=== PATIENT | female | born 1985 | race Caucasian/White ===

== ENCOUNTER 2020-05-13 07:37 | Outpatient (RCR) | payer BC, SELFPAY ==
[2020-03-04 09:43] LABS: Basophils Percent Auto 0.2 % (0.2-1.2); Eosinophils Absolute Auto 0.1 K/mm3 (0-0.3); Eosinophils Percent Auto 1.7 % (0-4.4); Hematocrit 41.1 % (37.0-47.0); Hemoglobin 14.3 g/dL (12.0-15.0); Immature Granulocyte Absolute 0.01 K/mm3 (0.00-0.031); Immature Granulocyte Percent A 0.2 % (0-0.5); Lymphocytes Absolute Auto 1.52 K/mm3 (0.9-3.2); Mean Corpuscular HGB Conc 34.8 g/dl (32-36); Mean Corpuscular Hemoglobin 32.7 pg (26-34); Mean Corpuscular Volume 94.1 fl (80-100); Mean Platelet Volume 9.4 fl (7.4-10.4); Monocytes Absolute Auto 0.6 K/mm3 (0.1-0.6); Neutrophils Absolute Auto 2.4 K/mm3 (1.3-6.7); Neutrophils Percent Auto 51.9 % (45.5-73.1); Platelet Count Result 229 k/mm3 (150-375); Red Blood Count 4.37 M/mm3 (4.2-5.4); Red Cell Distribution Width 11.4 % (11.5-14.5); White Blood Count 4.6 K/mm3 (4.5-10.0)
[2020-03-04 09:57] LABS: Alanine Aminotransferase 22 U/L (4-35); Albumin Level 4.6 g/dL (3.5-5.1); Alkaline Phosphatase 48 U/L (38-126); Aspartate Amino Transferase 32 U/L (14-36); Blood Urea Nitrogen 14 mg/dL (7-17); Calcium 9.6 mg/dL (8.4-10.2); Carbon Dioxide 28 mmol/L (22-30); Chloride 104 mmol/L (98-107); Cholesterol 179 mg/dL (0-200); Estimated Glomerular Filt Rate > 60; Glucose 83 mg/dL (65-105); HDL Direct 48 mg/dL; Potassium 4.2 mmol/L (3.4-5.0); Sodium 138 mmol/L (137-145); Triglycerides 85 mg/dL (<150)
[2020-03-04 10:07] LABS: LDL Cholesterol Direct 102 mg/dL
[2020-04-08 08:08] LABS: Alanine Aminotransferase 37 U/L (4-35); Albumin Level 4.5 g/dL (3.5-5.1); Alkaline Phosphatase 46 U/L (38-126); Aspartate Amino Transferase 39 U/L (14-36); Bilirubin,Total 0.9 mg/dL (0.2-1.3); Blood Urea Nitrogen 11 mg/dL (7-17); Calcium 9.3 mg/dL (8.4-10.2); Carbon Dioxide 27 mmol/L (22-30); Chloride 106 mmol/L (98-107); Cholesterol 161 mg/dL (0-200); Estimated Glomerular Filt Rate > 60; Glucose 92 mg/dL (65-105); HDL Direct 41 mg/dL; Potassium 4.4 mmol/L (3.4-5.0); Sodium 138 mmol/L (137-145); Triglycerides 104 mg/dL (<150)
[2020-04-08 08:18] LABS: LDL Cholesterol Direct 96 mg/dL
[2020-04-08 08:41] LABS: Basophils Percent Auto 0.4 % (0.2-1.2); Eosinophils Absolute Auto 0.1 K/mm3 (0-0.3); Eosinophils Percent Auto 1.9 % (0-4.4); Hematocrit 39.3 % (37.0-47.0); Hemoglobin 13.6 g/dL (12.0-15.0); Immature Granulocyte Absolute 0.02 K/mm3 (0.00-0.031); Immature Granulocyte Percent A 0.4 % (0-0.5); Lymphocytes Absolute Auto 1.49 K/mm3 (0.9-3.2); Mean Corpuscular HGB Conc 34.6 g/dl (32-36); Mean Corpuscular Hemoglobin 32.7 pg (26-34); Mean Corpuscular Volume 94.5 fl (80-100); Mean Platelet Volume 9.7 fl (7.4-10.4); Monocytes Absolute Auto 0.6 K/mm3 (0.1-0.6); Monocytes Percent Auto 12.3 % (2.6-8.5); Neutrophils Absolute Auto 2.9 K/mm3 (1.3-6.7); Platelet Count Result 238 k/mm3 (150-375); Red Blood Count 4.16 M/mm3 (4.2-5.4); Red Cell Distribution Width 11.6 % (11.5-14.5); White Blood Count 5.1 K/mm3 (4.5-10.0)
[2020-05-13 07:57] LABS: Basophils Percent Auto 0.2 % (0.2-1.2); Eosinophils Absolute Auto 0.1 K/mm3 (0-0.3); Eosinophils Percent Auto 1.8 % (0-4.4); Hematocrit 37.1 % (37.0-47.0); Hemoglobin 12.9 g/dL (12.0-15.0); Immature Granulocyte Absolute 0.01 K/mm3 (0.00-0.031); Immature Granulocyte Percent A 0.2 % (0-0.5); Lymphocytes Absolute Auto 1.36 K/mm3 (0.9-3.2); Lymphocytes Percent Auto 30.2 % (18.3-44.2); Mean Corpuscular HGB Conc 34.8 g/dl (32-36); Mean Corpuscular Hemoglobin 32.7 pg (26-34); Mean Corpuscular Volume 94.2 fl (80-100); Mean Platelet Volume 9.2 fl (7.4-10.4); Monocytes Absolute Auto 0.5 K/mm3 (0.1-0.6); Neutrophils Absolute Auto 2.5 K/mm3 (1.3-6.7); Neutrophils Percent Auto 55.6 % (45.5-73.1); Platelet Count Result 221 k/mm3 (150-375); Red Blood Count 3.94 M/mm3 (4.2-5.4); Red Cell Distribution Width 11.6 % (11.5-14.5); White Blood Count 4.5 K/mm3 (4.5-10.0)
[2020-05-13 08:08] LABS: Alanine Aminotransferase 17 U/L (4-35); Albumin Level 4.4 g/dL (3.5-5.1); Alkaline Phosphatase 44 U/L (38-126); Aspartate Amino Transferase 27 U/L (14-36); Bilirubin,Total 0.7 mg/dL (0.2-1.3); Blood Urea Nitrogen 9 mg/dL (7-17); Calcium 9.1 mg/dL (8.4-10.2); Carbon Dioxide 26 mmol/L (22-30); Chloride 106 mmol/L (98-107); Cholesterol 141 mg/dL (0-200); Estimated Glomerular Filt Rate > 60; Glucose 92 mg/dL (65-105); HDL Direct 33 mg/dL; Potassium 4.3 mmol/L (3.4-5.0); Sodium 136 mmol/L (137-145); Triglycerides 108 mg/dL (<150)
[2020-05-13 08:19] LABS: LDL Cholesterol Direct 82 mg/dL
== END 2020-06-02 23:59 | disposition home or self-care (01) ==
LOC: ANHLAB 07:37
PROVIDERS: PCP Family Medicine
DX: Z51.81 Encounter for therapeutic drug level monitoring (principal); Z79.899 Other long term (current) drug therapy
CPT/HCPCS: 36415; 80053; 80061; 85025

== ENCOUNTER 2020-11-12 10:05 | Outpatient (CLI) | payer BC, SELFPAY ==
--- NOTE | ~2020-11-12 | XR_ITS ---
XR ankle LT min 3V DATE: 11/12/2020 10:20 INDICATION: Rolled ankle last week. Pain of medial and lateral aspects of left ankle TECHNIQUE: 4 views COMPARISON: None FINDINGS: There is slight plantar calcaneal enthesopathy. No fracture or dislocation of the ankle or disruption of the ankle mortise is detected. No periosteal reaction or bone destruction. IMPRESSION: No fracture or dislocation Reviewed, dictated and finalized at location B. RAPH OPERATOR IMPRESSION: No fracture or dislocation
--- NOTE | ~2020-11-12 | XR_ITS ---
XR foot LT min 3V DATE: 11/12/2020 10:20 INDICATION: Rolled ankle last week. Left ankle and foot pain TECHNIQUE: 4 views COMPARISON: None FINDINGS: Slight plantar calcaneal enthesopathy. No fracture or dislocation, periosteal reaction or bone destruction. IMPRESSION: No fracture or dislocation Reviewed, dictated and finalized at location B. ARCHITECT IMPRESSION: No fracture or dislocation
== END 2020-11-12 10:06 | disposition home or self-care (01) ==
PROVIDERS: PCP Family Medicine; Visit Provider Nurse Practitioner Family
DX: M25.572 Pain in left ankle and joints of left foot (principal); M79.672 Pain in left foot
CPT/HCPCS: 73610; 73630

== ENCOUNTER 2021-07-01 11:35 | Outpatient (CLI) | payer BC, SELFPAY ==
[2021-07-01 13:33] LABS: SARS-CoV-2 IgG Non-Reactive (NonReactive)
== END 2021-07-01 11:36 | disposition home or self-care (01) ==
PROVIDERS: PCP Family Medicine; Visit Provider Physician Assistant
DX: Z20.822 Contact with and (suspected) exposure to COVID-19 (principal)
CPT/HCPCS: 36415; 86769

== ENCOUNTER 2021-07-03 11:27 | Outpatient (CLI) | payer BC, SELFPAY | END 2021-07-03 11:28 | disposition home or self-care (01) | PROVIDERS: PCP Family Medicine; Visit Provider Physician Assistant | DX: Z20.822 Contact with and (suspected) exposure to COVID-19 (principal) | CPT/HCPCS: 36415; 86769 ==

== ENCOUNTER 2023-12-17 08:17 | Outpatient (CLI) | payer OTHER, SELFPAY ==
[2023-12-17 08:59] LABS: Basophils Percent Auto 0.8 % (0.2-1.2); Eosinophils Absolute Auto 0.1 K/mm3 (0-0.3); Eosinophils Percent Auto 3.6 % (0-4.4); Hematocrit 38.3 % (37.0-47.0); Hemoglobin 12.9 g/dL (12.0-15.0); Immature Granulocyte Absolute 0.01 K/mm3 (0.00-0.031); Immature Granulocyte Percent A 0.3 % (0-0.5); Lymphocytes Absolute Auto 1.21 K/mm3 (0.9-3.2); Lymphocytes Percent Auto 33.5 % (18.3-44.2); Mean Corpuscular HGB Conc 33.7 g/dl (32-36); Mean Corpuscular Hemoglobin 32.9 pg (26-34); Mean Corpuscular Volume 97.7 fl (80-100); Mean Platelet Volume 9.2 fl (7.4-10.4); Monocytes Absolute Auto 0.6 K/mm3 (0.1-0.6); Monocytes Percent Auto 15.5 % (2.6-8.5); Neutrophils Absolute Auto 1.7 K/mm3 (1.3-6.7); Neutrophils Percent Auto 46.3 % (45.5-73.1); Platelet Count Result 242 k/mm3 (150-375); Red Blood Count 3.92 M/mm3 (4.2-5.4); White Blood Count 3.6 K/mm3 (4.5-10.0)
[2023-12-17 09:00] LABS: Appearance Urine Clear (Clear); Bilirubin Urine Negative (Negative); Blood Urine Negative (Negative); Color Urine Yellow (Yellow); Glucose Urine UA Negative (Negative); Ketones Urine Negative (Negative); Leukocyte Esterase Ur Negative LEU/UL (NEGATIVE); Nitrate Urine Negative (Negative); Protein Urine Negative (Negative); Specific Grav Ur 1.017 (1.001-1.035); Urobilinogen Urine 0.2 mg/dL (<2.0)
[2023-12-17 09:13] LABS: Add Urine Microscopic? NO
[2023-12-17 09:18] LABS: Alanine Aminotransferase 18 U/L (6-35); Albumin Level 4.1 g/dL (3.5-5.1); Alkaline Phosphatase 43 U/L (38-126); Anion Gap 5 mmol/L (8-16); Aspartate Amino Transferase 33 U/L (14-36); Bilirubin,Total 0.6 mg/dL (0.2-1.3); Blood Urea Nitrogen 9 mg/dL (7-17); Calcium 9.3 mg/dL (8.4-10.2); Carbon Dioxide 29 mmol/L (22-30); Chloride 104 mmol/L (98-107); Cholesterol 164 mg/dL (0-200); Estimated Glomerular Filt Rate > 60; Glucose 91 mg/dL (65-110); HDL Direct 52 mg/dL; Potassium 4.3 mmol/L (3.4-5.0); Sodium 138 mmol/L (137-145); Triglycerides 57 mg/dL (<150)
[2023-12-17 09:28] LABS: LDL Cholesterol Direct 94 mg/dL
== END 2023-12-17 08:18 | disposition home or self-care (01) ==
LOC: ANHLAB 08:18
PROVIDERS: PCP Family Medicine; Visit Provider Physician Assistant
DX: Z00.00 Encounter for general adult medical examination without abnormal findings (principal); F41.9 Anxiety disorder, unspecified
CPT/HCPCS: 36415; 80053; 80061; 81003; 84443; 85025

== ENCOUNTER 2023-12-23 07:36 | Outpatient (CLI) | payer OTHER, SELFPAY ==
--- NOTE | ~2023-12-23 | MR_ITS ---
EXAMINATION: MR brain IAC wo/w con DATE: 12/23/2023 08:27 INDICATION: Left ear tinnitus TECHNIQUE: Magnetic resonance imaging (MRI) of the brain and brainstem was performed without and with 13 mL Multihance intravenous contrast. Sequences included sagittal and axial T1-weighted FSE, axial diffusion-weighted FS EPI, axial T2*-weighted GRE, axial T2-weighted FLAIR Propeller, axial T2-weight ed Propeller, small bocsz-hk-qllc coronal FIESTA, small porqh-mv-twuq coronal T1-weighted FSE, and sm all tbsks-gf-ifui axial T1-weighted SPGR. Postcontrast sequences included axial T1-weighted FSE, smal l xibee-mt-ojty coronal T1-weighted FSE, and small zuvow-ks-jesc axial T1-weighted SPGR. Apparent dif fusion coefficient (ADC) maps were created. COMPARISON: None. FINDINGS: There are no areas of restricted diffusion to suggest acute infarction. No intracranial hemorrhage or abnormal intracranial mass lesion. There are no intraparenchymal signal abnormalities seen on the ot her pulse sequences. The ventricles are symmetric and normal in size. There are no abnormal extra-axi al fluid collections. Normal seventh/eighth cranial nerve complexes. No cerebellopontine angles mass es. Small effusion at the inferior right mastoid air cells. No fluid at the left mastoid or bilateral middle ear cavities. Flow voids are seen in the cerebral arteries on the T2-weighted sequences consi stent with their expected patency. There is a high riding left jugular bulb diverticulum which extend s slightly cephalad to the floor of the external auditory canal and the basal turn of the cochlea. Th ere is also asymmetric enlargement of the right jugular bulb relative to the left. Visualized orbits and soft tissues are unremarkable. There are no areas of abnormal enhancement on the post contrast im ages. IMPRESSION: 1. 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 2. small right mastoid effusion. 3. Normal brain. Reviewed, dictated and finalized at location A. RMAN
== END 2023-12-23 07:37 ==
LOC: MICIMG 07:37
PROVIDERS: PCP Family Medicine; Visit Provider Family Medicine
DX: H93.12 Tinnitus, left ear (principal)
CPT/HCPCS: 70553; A9577

== ENCOUNTER 2024-06-14 02:14 | Day surgery (SDC) | payer OTHER, SELFPAY ==
[2024-06-08 15:14] VITALS: BMI 24.2
--- NOTE | 2024-06-08 15:20 | PC.NURSE ---
Report to the Outpatient Waiting Room, entrance under the green pavilion located off [facility], at time _0600__ on date _06/14/24_. Planned Procedure Time: _0730__. Time changes happen often and if your time is changed the preop area will call you the afternoon before. - You and your visitor will be asked to self-screen and do not enter if you have any COVID symptoms. - A mask is optional within the hospital at this time. Patients may have clear liquids (water, carbonated beverages, clear teas, apple juice) until 3 hours prior to surgery with a maximum of 20 ounces. - No food from midnight until time of surgery - Infants may have breast milk until 4 hours before surgery, infant formula 6 hours prior to surgery. - Children will be allowed to drink immediately following surgery. If applicable, please bring a bottle or sippy cup to assist with drinking. Juice, water, soda, and popsicles are readily available. For infants on formula, please bring formula the day of surgery. Pacifiers are allowed. Take the following medications with a SIP of water the morning of surgery: NONE DO NOT STOP ANY OF YOUR OTHER PRESCRIPTION MEDICATIONS PRIOR TO SURGERY ?EXCEPT THE FOLLOWING Medications to discontinue per physician VITAMIN Date to take last dose 06/11/24 Please no make-up, nail maltese, hairspray, perfume, deodorant, or body powder the day of surgery. No jewelry (including any body piercings) or valuables the day of surgery, leave them at home. Please take a shower or bath the night before, or the morning of, surgery with an antibacterial soap. Wear comfortable, loose fitting clothing. Children are encouraged to wear pajamas. - Jewelry must be removed prior to entering the operating room. Rings and piercings that are not removed may be cut off. - The hospital will not accept responsibility for valuables. - Please leave all valuables, including medications, at home the day of surgery. If you are going home after surgery, a licensed tier truck driver must drive you home. - NO public transportation without another adult if you receive anesthesia. - We recommend that an adult stay with you for 24 hours following discharge. - We also recommend that you do not drive, make important decision, drink alcoholic beverages, or take any drugs that were not prescribed by your health care provider for at least 24 hours after your discharge time. For Pediatric surgeries, we recommend two adults accompany the child home. Follow any additional instructions given to you from your surgeon. If you or anyone in your household have experienced Covid symptoms in the past week, please notify your surgeon or the nurse liaison at the phone number below for possible testing. Telephone instructions given to _PATIENT_and asked if any additional questions and then verbalized understanding. Patient advised to call surgeon office or pre surgery nurse liaison [phone] if any additional questions.
[2024-06-14] VITALS (15 sets, daily range): BP systolic 90–113; BP diastolic 55–76; PULSE 53–71; RESP 13–20; TEMP 36.1–37.2; O2SAT 99–100
[2024-06-14] MEDS: LACTATED RINGERS 1,000 ML 30 ML IV CONT ×3 (06:15→09:54)
[2024-06-14] MEDS: SCOPOLAMINE 1 MG PATCH 1 PATCH TRANSDERM (07:10)
--- NOTE | 2024-06-14 07:10 | P.OP_ITS ---
Procedure Note - Detailed Date of Procedure 06/14/24 Pre-op Diagnosis micromastia Post-op Diagnosis Same Procedure Performed Bilateral augmentation mammaplasty Surgeon Zach Portillo MD Anesthesia General Findings Bilateral dual plane 3 Bilateral Natrelle Saline Implants 440 filled to 460 Right REF# [id number] SN [id number] Left REF# [id number] SN [id number] Description of Procedure She is here today for bilateral breast augmentation. Previously and again today the risks, benefits, alternatives were discussed in extensive detail. I wanted her to be very realistic about the risks involved as well as expectations. We discussed aftercare and what to monitor for. Made sure answered all of her questions to her satisfaction today and consent was obtained. Marked in the preoperative holding area with their verification. Outlined again today her glandular ptosis and how she will likely have a degree of waterfall after the procedure. Alternative is with mastopexy which she declines. If she is unhappy after the procedure she would proceed with second stage mastopexy (at her expense). The patient was taken to the operating room placed supine on the operating table. Anesthesia was provided by anesthesiology. A surgical time-out was taken. We cleansed the skin and 1% lidocaine and 0.25% Marcaine with epinephrine was used anesthetize as a field block. She was prepped and draped in a standard sterile fashion. Tegaderm nipple Ramey were placed. A 15 blade used to make an incision along the inframammary fold. Dissection was continued at 45 degree angle until the chest wall as identified. I incised the pectoralis major along its inferior bor mckenna and completely released the inferior border leaving the medial border intact. I created a subpectoral pocket in the appropriate dimensions based on our preoperative planning for the implant. I then copiously irrigated with saline solution and verified a strict hemostasis. Next the use a triple antibiotic and Betadine containing solution to irrigate the pocket. I washed my gloves with the triple antibiotic and Betadine solution. We washed the implant immediately upon opening it with this solution and only opened it when we needed it. The implant was introduced into the pocket. Using a saline fill kit the implant was filled to the volumes as above. Fill tubing removed and verified the valve seated. Having verified positioning of the implant this was closed using 2-0 PDS followed by 3-0 Monocryl in a running subcuticular 4-0 Monocryl followed by tissue glue. Fluffs and surgical bra were placed. Patient was awoke and taken to PACU without difficulty. All instrument sponge counts were correct at the end of the case. Estimated Blood Loss 40 Drains No Packing No Pathology None sent Complications No immediate complications Condition Stable Disposition PACU
--- NOTE | 2024-06-14 07:10 | WPDHPUPDATE1 ---
History and Physical Update Update Date/Time: 06/14/24 07:10 History and Physical has been reviewed, including an updated exam of the patient. There are NO changes in the patient's condition. Risks, benefits, and alternatives have been discussed and questions answered. Patient agrees to proceed with procedure.
--- NOTE | 2024-06-14 07:19 | WPDANESEPPF ---
Anes - Initial Pre Proc Eval Procedure: Operation Date: 06/14/24 07:30 Proposed Procedures p Bilateral Breast Augmentation - Zach Portillo MD Date/Time: 06/14/24 07:19 Surgeon: Zach Portillo MD Pre Op Diagnosis: micromastia Patient Data Age: 39 Gender: F Height: 1.68 m Weight: 68 kg Allergies Allergy/AdvReac Type Severity Reaction Status Date / Time No Known Allergies Allergy Verified 06/14/24 07:08 Home Medications Medication Instructions Recorded Confirmed Type cholecalciferol (vitamin D3) 50 50 mcg PO DAILY 06/08/24 06/14/24 History mcg (2,000 unit) capsule (Vitamin D3) Patient hx anesthesia problems: post op nausea/vomiting Family hx anesthesia problems: none Results Review: All pre-operative results and documents have been reviewed as part of the pre-operative evaluation. [facility]LY [facility] Past Medical History Medical History Anxiety Surgical History Surgical History History of umbilical hernia repair component separation and mesh Family History Family History Mother Hypertension Cerebrovascular accident Heart disease Social History Social History Social History: Smoking status: Never smoker Second hand tobacco smoke exposure: No Alcohol intake: current Drinks per week: 1 Alcohol use details: One beer a month Substance use: never Substance use type: does not use Living arrangements: with family Occupation/Education: occupation Gender identity (if verbalized by the patient): Female Sexual Orientation (if Verbalized by the Patient): Straight or Heterosexual Anes - Eval Final PreProcedure Day of Procedure 06/14/24 07:19 Patient weight: normal Heart: regular rate and rhythm Lungs: clear to auscultation Airway: Mallampati scale class II Neurological: alert and oriented Last oral intake: >/= 8 hours ASA classification: I Emergent: no Anesthetic plan: proceed Anesthesia type and monitoring: general LMA and standard monitoring Results Review: All pre-operative results and documents have been reviewed as part of the pre-operative evaluation. Informed Consent: The patient's anesthetic plan and its attendant risks and benefits were discussed with the patient/family/POA. Questions were solicited and answers provided to the satisfaction of the patient/family/POA.
[2024-06-14 07:29] LABS: BEDSIDEPREGUCG Negative
[2024-06-14] MEDS: BUPivacaine HCL 0.25% PF 30 ML VIAL INFILTRATE (07:30)
[2024-06-14] MEDS: ceFAZolin 2 GM/D5W 50 ML 2 GM/50 ML BAG IVPB (07:30)
[2024-06-14] MEDS: NACL 0.9% IRRIG POUR BOTTLE 900 ML, GENTAMICIN SULFATE INJ 160 MG, ceFAZolin 2 GM, POVI... IRRIGATION (07:30)
[2024-06-14] MEDS: LIDO 1%/EPINEPHRINE 1:100,000 50 ML VIAL 30 ML INFILTRATE (07:30)
[2024-06-14] MEDS: TRANEXAMIC ACID 1,000MG/ISO100 1,000 MG/100 ML BAG 200 MG IVPB (07:35)
[2024-06-14] MEDS: ONDANSETRON INJ 4 MG/2 ML VIAL IV PUSH (09:30)
[2024-06-14] MEDS: diphenhydrAMINE HCl INJ 50 MG/ML VIAL 25 MG IV PUSH (09:53)
[2024-06-14] MEDS: fentaNYL CITRATE INJ (*CRX) 100 MCG/2 ML VIAL 25 MCG IV PUSH ×3 (09:57→10:29)
[2024-06-14] MEDS: oxyCODONE HCL (*CRX) 5 MG TAB IR PO (10:56)
== END 2024-06-14 11:40 | disposition home or self-care (01) ==
PROVIDERS: PCP Family Medicine; Visit Provider Surgery Plastic and Reconstructive Surgery
PROC: (CPT 19325; principal; 2024-06-14 07:30)
DX: Z41.1 Encounter for cosmetic surgery (principal); N64.82 Hypoplasia of breast; N64.81 Ptosis of breast; F41.9 Anxiety disorder, unspecified; Z98.890 Other specified postprocedural states; Z82.49 Family history of ischemic heart disease and other diseases of the circulatory system
CPT/HCPCS: 19325; A9270; J0690; J1100; J1170; J1200; J1580; J2250; J2405; J2704; J3010; J7030; J7120

== ENCOUNTER 2025-07-24 15:02 | Emergency (ER) | payer OTHER, SELFPAY ==
--- NOTE | ~2025-07-24 | XR_ITS ---
EXAMINATION: XR hip RT 2V w AP pelvis, 07/24/2025 15:20 CDT HISTORY: Pain/trauma COMPARISON: No comparisons available. Findings: No acute fracture or malalignment. No significant degenerative changes. Soft tissues unremarkable. Impression: No acute fracture or malalignment. Reviewed, dictated and finalized at location A. Impression: No acute fracture or malalignment.
[2025-07-24 15:06] VITALS: BP 124/83; PULSE 86; RESP 18; TEMP 36.8; O2SAT 100
--- OUTSIDE RECORDS SUMMARY | 2025-07-24 15:46 | XMS_ITS | Encounter Summary ---
Author Organization [facility] Address [address] [place] [address] Care Team Providers Care Grinder Needle Tip Name Role Phone Unavailable Primary Care Provider Unavailabl e Encounter Details Date Type Department Care Team (Late st Contact Info) Description 10/29/2020 Lab Requisition [facility] Derm[facility] Lab [address] [place] [id number] Alejandrina Phillips MD [address] [facility] [address] [place] [address] Social History Tobacco Use Types Packs/Day Years Used Date Smoking Tobacco: Never Assessed Comments Unknown Sex and Gender Information Value Date Recorded Sex Assigned at Not on file Legal Sex Female 2:51 PM CRANBERRY BOG SUPERVISOR Gender Identity Not on file Sexual Orientation Not on file documented as of this encounter Plan of Treatment Not on file documented as of this encounter Procedures Procedure Name Priority Date/Time Associated Diagnosis Comments DERMATOPATHOLOGY Routine 10/28/2020 3:33 AM CRANBERRY BOG SUPERVISOR documented in this encounter Results * DERMATOPATHOLOGY (10/28/2020 3:33 AM CRANBERRY BOG SUPERVISOR) Case Report Dermatopathology Report Case: [id number] Authorizing Provider: Alejandrina Phillips MD Collected: 10/28/2020 03:33 AM Ordering Location: [facility] Received: 10/29/2020 01:06 PM Pathologist: Belinda Villela MD Specimen: Skin, chest 0 1:43 PM CRANBERRY BOG SUPERVISOR DERMATOPATHOLOGY LABORATORY Final Diagnosis Specimen A. SKIN, chest: MOLLUSCUM CONTAGIOSUM (B08.1) 0 1:43 PM CRANBERRY BOG SUPERVISOR DERMATOPATHOLOGY LABORATORY at [address] CRANBERRY BOG SUPERVISOR Clinical History R/O BCC, irritated. 0 1:43 PM [facility] DERMATOPATHOLOGY LABORATORY Gross Description Specimen A: Received is one formalin filled container labeled with the patient's name and designated chest. The specimen consists of a shave measuring 1x9w8lo. Jar 0. 0 1:43 PM [facility] DERMATOPATHOLOGY LABORATORY Microscopic Description Specimen A. SKIN, chest: There are several inverted lobules of squamous epithelium with numerous intracytoplasmic eosinophilic inclusions (molluscum bodies). 0 1:43 PM [facility] DERMATOPATHOLOGY LABORATORY Disclaimer An external and internal positive and negative controls are appropriate for the histochemical, immunohistochemical and immunofluorescence stain(s) in this case (if any), except where stated explicitly. The performance characteristics of the stain(s) cited in this report were developed and its performance characteristic determined by the Dermatopathology Laboratory at [facility], directed by Dr. Colleen Ibrahim. These tests need not be, and therefore are not, approved by the [place] Food and Drug Administration. The tests are used for clinical purposes. Billing Codes Specimen Charges Stain Charges 27159 1 0 1:43 PM [facility] DERMATOPATHOLOGY LABORATORY Embedded Images 0 1:43 PM [facility] DERMATOPATHOLOGY LABORATORY Pathology/Cytolo gy TISSUE SPECIMEN FROM SKIN / Unknown 10/28/2020 3:33 AM CRANBERRY BOG SUPERVISOR 10/29/2020 1:06 PM CRANBERRY BOG SUPERVISOR Alejandrina Phillips MD LAB - PATHOLOGY/CYTOLOGY OR DERABLES Final Result DERMATOPATHOLOGY LABORATORY [facility] - Department of Dermatology [address], [address] [phone] documented in this encounter Visit Diagnoses Not on filedocumented in this encounter
--- OUTSIDE RECORDS SUMMARY | 2025-07-24 15:46 | XMS_ITS | Clinical Summary ---
Author Organization [facility] Address [address] [place] [address] Care Team Providers Care Seconds Inspector Name Role Phone Unavailable Primary Care Provider Unavailabl e Encounters Date Type Department Care Team Description 04/30/2025 External Device Data STL ABSTRACTION Provider, Abstract 04/24/2025 External Device Data ST[facility] ABSTRACTION Provider, Abstract from Last 3 Months Social History Tobacco Use Types Packs/Day Years Used Date Smoking Tobacco: Never Assessed Comments Unknown Sex and Gender Information Value Date Recorded Sex Assigned at Not on file Legal Sex Female 10:52 AM CDT Gender Identity Not on file Sexual Orientation Not on file Plan of Treatment Health Maintenance Due Date Last Done Comments HEPATITIS B VACCINES (1 of 3 - 19+ 3-dose series) 2004 HPV/Cotest (21-29) 2006 HPV VACCINES (1 - 3-dose SCD M series) 2012 CERVICAL CANCER SCREENING 2015 HPV/Cotest (30-65) 2015 PAP SMEAR 2015 BREAST CANCER SCREENING 2025 05/03/2024 INFLUENZA VACCINE (#1) 2025 08/22/2020 DTAP/TDAP/TD VACCINES (4 - T d or Tdap) 09/16/2026 09/16/2016, 08/30/2016, 06/27/2013 Procedures Procedure Name Priority Date/Time Associated Diagnosis Comments MAMMO 3D LISA SCREEN BILAT W OR WO CAD Routine 05/03/2024 1:06 PM CDT Encounter for screening mammogram for malignant neoplasm of breast from Last 3 Months or Most Recently Relevant to Health Maintenance Results * MAMMO 3D LISA SCREEN BILAT W OR WO CAD (05/03/2024 1:06 PM CDT) Anatomical Region Laterality Modality Breast Bilateral Mammography 05/03/2024 1:06 PM CDT Impressions 05/03/2024 1:34 PM CDT IMPRESSION: NO MAMMOGRAPHIC EVIDENCE OF MALIGNANCY. OVERALL BIRADS CATEGORY:1 - negative. ROUTINE SCREENING MAMMOGRAPHY IS RECOMMENDED IN 12 MONTHS. A normal letter will be sent to patient. Narrative 05/03/2024 1:34 PM CDT EXAM: MAMMO 3D LISA SCREEN BILAT W OR WO CAD STUDY DATE: 05/03/2024 1:06 PM CLINICAL INDICATION: 38 years old female presents for baseline screening mammography. COMPARISON: None PROCEDURE: CC and MLO digital mammographic views of the bilateral breasts are obtained. Computer Aided Detection (CAD) was utilized. Tomosynthesis was done with all views. FINDINGS: Breast Density: Heterogeneously dense, which may lower the sensitivity of mammography. Right breast: There are no spiculated masses, suspicious microcalcifications or areas of architectural distortion in the right breast. Left breast: There are no spiculated masses, suspicious microcalcifications or areas of architectural distortion in the left breast. Zach Portillo MD MAMMO ORDERABLES Final Result from Last 3 Months or Most Recently Relevant to Health Maintenance Insurance PPO
--- OUTSIDE RECORDS SUMMARY | 2025-07-24 15:46 | XMS_ITS | Clinical Summary ---
Author Organization [facility] Address [address] [place] [address] Care Team Providers Care Cloth Winder Machine Operator Name Role Phone Unavailable Primary Care Provider Unavailabl e Source Comments [facility],non-owned Affiliates and Associated Physician Practices is amultiple site organization consisting of ambulatory clinics and hospital sitesin [place], [place], [place] and [place]. This disclosure is being madepursuant to the Care Everywhere program and may not contain all information available regarding this patient. Last updated 18.[facility] [employer] Social History Tobacco Use Types Packs/Day Years Used Date Smoking Tobacco: Never Assessed Comments Unknown Sex and Gender Information Value Date Recorded Sex Assigned at Not on file Legal Sex Female 2:51 PM COST COORDINATOR Gender Identity Not on file Sexual Orientation Not on file Plan of Treatment Health Maintenance Due Date Last Done Comments LIPID TESTING 1985 MAMMOGRAM 1985 HIV SCREENING 2000 HEPATITIS C SCREENING 05/17/2003 DTAP/TDAP/TD VACCINES (1 - Tdap) 2004 HEPATITIS B VACCINE (1 of 3 - 19+ 3-dose series) 2004 HPV VACCINE (1 - 3-dose SCDM series) 2012 DEPRESSION SCREENING 11/07/2024 COVID-19 VACCINE (1 - 2023-2 5 season) 2025 INFLUENZA VACCINE (#1) 2025 ZOSTER VACCINE (1 of 2) 2035 HIB VACCINE Aged Out No longer eligi ble based on patient's age to complete this topic MENINGOCOCCAL (Group B) VACC INE SHARED DECISION-MAKING Aged Out No longer eligibl e based on patient's age to complete this topic MENINGOCOCCAL GROUPS A/C/Y/W VACCINE Aged Out No longer eligible b ased on patient's age to complete this topic PNEUMOCOCCAL VACCINE Aged Out No long er eligible based on patient's age to complete this topic Insurance [facility] Address: [facility] [id number] [place] [address]
--- OUTSIDE RECORDS SUMMARY | 2025-07-24 15:46 | XMS_ITS | Clinical Summary ---
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 Sensorineural hearing loss (SNHL) of both ears 0 02/13/2024 Acne 03/23/2014 Overview (02/09/2017): Acne Immunizations Immunization Administration Dates Next Due Influenza, Quadrivalent, Spl it, Preservative Free, Intramuscular 08/22/2020 Influenza, Unspecified 08/11/2023 Tdap 09/16/2016,08/30/2016,06/27/2013 Surgical History Surgery Date Site/Laterality Comments OTHER SURGICAL HISTORY 2012 : OTHER SURGICAL HISTORY 2015 : Medical History Medical History Date Comments Hx Other Medical ; Outc ome: 39W0D week 7lb(s) 14 oz Female Hx Other Medical ; Outc ome: Live infant Anxiety Family History Medical History Relation Name Comments Heart attack Maternal Grandfather Heart disease Maternal Grandfather Heart disease; Hypertension Maternal Grandfather Heart attack Maternal Grandmother Hypertension Maternal Grandmother Hypertension Mother Stroke Mother stroke; Alzheimer's disease Paternal Grandmother Alzheimer's Disease; Relation Name Status Comments Maternal Grandfather Maternal Grandmother Mother Paternal Grandmother Social History Tobacco Use Types Packs/Day Years Used Date Smoking Tobacco: Never Smokeless Tobacco: Never Tobacco Cessation:Counseling Given: Not Answered Alcohol Use Standard Drinks/Week Comments Yes 0 (1 standard drink = 0.6 oz pur e alcohol) AUDIT-C Answer Date Recorded Q1: How often do you have a drink containing alc ohol? Monthly or less 01/26/2024 Q2: How many drinks containi ng alcohol do you have on a typical day when you are drinking? 1 or 2 01/26/2024 Q3: How often do you have si x or more drinks on one occasion? 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 Gender Identity Not on file Sexual Orientation Not on file Obstetrics History Last Filed Vital Signs Vital Sign Reading Time Taken Comments Blood Pressure 118/80 03/22/2025 9:43 AM CDT Pulse 75 01/26/2024 7:56 AM CDT Temperature - - Respiratory Rate - - Oxygen Saturation - - Inhaled Oxygen Concentration - - Weight 70.3 kg (155 lb) 03/22/2025 9:43 AM CDT Height 167.6 cm (5' 5.98) 03/22/2025 9:43 AM CD T Body Mass Index 25.03 03/22/2025 9:43 AM CDT Plan of Treatment Health Maintenance Due Date Last Done Comments Depression Screening 1985 Hepatitis C Screening 1985 Varicella Vaccines (1 of 2 - 13+ 2-dose series) 1998 Hepatitis B Screening 2003 HPV Vaccines (1 - 3-dose SCDM series) 2012 Breast Cancer Screening-Mammogram 05/03/2025 05/03/2024 Influenza Vaccine (#1) 2025 08/11/2023, 2019 Regular Well Visit/Exam 18-64 03/22/2026 03/22/2025, 03/16/2024, 02/21/2023, Additional history exists DTaP/Tdap/Td Vaccine (4 - Td or Tdap) 09/16/2026 09/16/2016, 08/30/2016, 06/27/2013 Cervical Cancer Screening Discontinued 2024, 03/16/2024, 02/21/2023, Additional history exists Pneumococcal vaccine <65 Aged Out No longer eligible based on patient's age to complete this topic Procedures Procedure Name Priority Date/Time Associated Diagnosis Comments PAP AND HPV, REFLEX TO HPV GENOTYPES Routine 03/22/2025 10:09 AM CDT Screening for cervical cancer from Last 3 Months or Most Recently Relevant to Health Maintenance Results * Pap and HPV, reflex to HPV Genotypes (03/22/2025 10:09 AM CDT) Clinical indication Comment [facility] - 01 Comment:NEGATIVE FOR INTRAEP ITHELIAL LESION OR MALIGNANCY. Specimen adequacy: Comment [facility] - 01 Comment: Satisfactory for evaluation. Endocervical and/or squamous metaplastic cells (endocervical component) are present. Clinician provided ICD10 Comment [facility] 02 Comment:Z12.4 Performed by Comment [facility] - 01 Comment:Zahra Fontaine, Cyto logist (ASCP) . . [facility] - 01 Note: Comment [facility] 02 Comment: The Pap smear is a screening test designed to aid in the detection of premalignant and malignant conditions of the uterine cervix. It is not a diagnostic procedure and should not be used as the sole means of detecting cervical cancer. Both false-positive and false-negative reports do occur. Test methodology Comment [facility] 02 Comment: This liquid based ThinPrep(R) pap test was screened with the use of an image guided system. HPV Aptima Negative Negative [facility] 03 Comment: This nucleic acid amplification test detects fourteen high-risk HPV types (16,18,31,33,35,39,45,51,52,56,58,59,66,68) without differentiation. HPV Genotype Reflex Comment [facility] - 01 Comment:Criteria not met, HP V Genotype not performed. Thin prep-Endocervical 03/22/2025 10:09 AM CDT 03/22/2025 Narrative [facility] - 03/28/2025 9:10 AM CDT Performed at: [address] [place] [id number] Surface Plate Inspector: Viral Almonte PhD, Phone: [phone] Performed at: 02 - [facility] [place] [address] [place], [place] [id number] Surface Plate Inspector: Libia Nation MD, Phone: [phone] Performed at: 03 - [facility] [place] [address] [facility] [id number] Surface Plate Inspector: Libia Nation MD, Phone: [phone] Specimen Comment: [id number] Specimen Comment: No. of containers..01 ThinPrep Vial us Yosi Ward MD LAB CYTOLOGY ORDERABLES Final Result [facility] - 01 [facility] 02 [facility] 03 from Last 3 Months or Most Recently Relevant to Health Maintenance Insurance [employer] [place] Social [facility] OPEN ACCESS [facility] HMO/PPO Address: [address] [address] [place] [address] Advance Directives For more information, please contact: [phone] Documents on File Type Date Recorded Patient Weigher Alloy Expl anation ADVANCE DIRECTIVE 11/30/2017 Advance Di rective Checklist Care Teams Process Automation Engineer Relationship Specialty Start Date End Date Kel Person MD [address] [facility] [address] [place] [address] PCP - General Family Medicine 02/13/24
--- OUTSIDE RECORDS SUMMARY | 2025-07-24 16:19 | XMS_ITS | Encounter Summary ---
Author Organization [facility] Address [address] [place] [address] Care Team Providers Care Oil Field Laborer Name Role Phone Unavailable Primary Care Provider Unavailabl e Encounter Details Date Type Department Care Team (Late st Contact Info) Description 10/29/2020 Lab Requisition [facility] [address] [facility] [place] [id number] Alejandrina Phillips MD [address] [facility] [address] [place] [address] Social History Tobacco Use Types Packs/Day Years Used Date Smoking Tobacco: Never Assessed Comments Unknown Sex and Gender Information Value Date Recorded Sex Assigned at Not on file 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 Gender Identity Not on file Sexual Orientation Not on file documented as of this encounter Plan of Treatment Not on file documented as of this encounter Procedures Procedure Name Priority Date/Time Associated Diagnosis Comments DERMATOPATHOLOGY Routine 10/28/2020 3:33 AM PERFORATING MACHINE OPERATOR documented in this encounter Results * DERMATOPATHOLOGY (10/28/2020 3:33 AM PERFORATING MACHINE OPERATOR) Case Report Dermatopathology Report Case: [id number] Authorizing Provider: Alejandrina Phillips MD Collected: 10/28/2020 03:33 AM Ordering Location: [facility] Received: 10/29/2020 01:06 PM Pathologist: Belinda Villela MD Specimen: Skin, chest 0 1:43 PM PERFORATING MACHINE OPERATOR DERMATOPATHOLOGY LABORATORY Final Diagnosis Specimen A. SKIN, chest: MOLLUSCUM CONTAGIOSUM (B08.1) 0 1:43 PM PERFORATING MACHINE OPERATOR DERMATOPATHOLOGY LABORATORY at 1343 PERFORATING MACHINE OPERATOR Clinical History R/O BCC, irritated. 0 1:43 PM [facility] DERMATOPATHOLOGY LABORATORY Gross Description Specimen A: Received is one formalin filled container labeled with the patient's name and designated chest. The specimen consists of a shave measuring [id number]. Jar 0. 0 1:43 PM [facility] DERMATOPATHOLOGY LABORATORY Microscopic Description Specimen A. SKIN, chest: There are several inverted lobules of squamous epithelium with numerous intracytoplasmic eosinophilic inclusions (molluscum bodies). 0 1:43 PM [facility] DERMATOPATHOLOGY LABORATORY Disclaimer An external and internal positive and negative controls are appropriate for the histochemical, immunohistochemical and immunofluorescence stain(s) in this case (if any), except where stated explicitly. The performance characteristics of the stain(s) cited in this report were developed and its performance characteristic determined by the Dermatopathology Laboratory at [facility], directed by Dr. Colleen Ibrahim. These tests need not be, and therefore are not, approved by the [place] Food and Drug Administration. The tests are used for clinical purposes. Billing Codes Specimen Charges Stain Charges 57754 1 0 1:43 PM [facility] DERMATOPATHOLOGY LABORATORY Embedded Images 0 1:43 PM [facility] DERMATOPATHOLOGY LABORATORY Pathology/Cytolo gy TISSUE SPECIMEN FROM SKIN / Unknown 10/28/2020 3:33 AM PERFORATING MACHINE OPERATOR 10/29/2020 1:06 PM PERFORATING MACHINE OPERATOR Alejandrina Phillips MD LAB - PATHOLOGY/CYTOLOGY OR DERABLES Final Result DERMATOPATHOLOGY LABORATORY [facility] - Department of Dermatology [address], [address] [phone] documented in this encounter Visit Diagnoses Not on filedocumented in this encounter
--- OUTSIDE RECORDS SUMMARY | 2025-07-24 16:19 | XMS_ITS | Clinical Summary ---
Author Organization [facility] Address [address] [place] [place] [address] Care Team Providers Care Train Gateman Name Role Phone Unavailable Primary Care Provider Unavailabl e Source Comments [facility],non-owned Affiliates and Associated Physician Practices is amultiple site organization consisting of ambulatory clinics and hospital sitesin [place], [place], [place] and [place]. This disclosure is being madepursuant to the Care Everywhere program and may not contain all information available regarding this patient. Last updated 18.[facility] [employer] Social History Tobacco Use Types Packs/Day Years Used Date Smoking Tobacco: Never Assessed Comments Unknown Sex and Gender Information Value Date Recorded Sex Assigned at Not on file Legal Sex Female 2:[address] INSTRUCTOR Gender Identity Not on file Sexual Orientation [...]
--- OUTSIDE RECORDS SUMMARY | 2025-07-24 16:19 | XMS_ITS | Clinical Summary ---
Author Organization [facility] Address [address] [place] [address] Care Team Providers Care Platen Builder Up Name Role Phone Unavailable Primary Care Provider [...]
--- OUTSIDE RECORDS SUMMARY | 2025-07-24 16:19 | XMS_ITS | Clinical Summary ---
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 of containers..01 ThinPrep Vial us Yosi Ward MD LAB CYTOLOGY ORDERABLES Final Result [facility] - 01 [facility] 02 [facility] 03 from Last 3 Months or Most Recently Relevant to Health Maintenance Insurance [employer] [facility] OPEN ACCESS [facility] HMO/PPO Address: [address] [address] [place] [address] Advance Directives For more information, please contact: [phone] Documents on File Type Date Recorded Patient Structural Engineering Project Manager Expl anation ADVANCE DIRECTIVE 11/30/2017 Advance Di rective Checklist Care Teams Engine Testing Supervisor Relationship Specialty Start Date End Date Kel Person MD [address] [facility] [address] [place] [address] PCP - General Family Medicine 02/13/24
--- NOTE | 2025-07-24 16:43 | ED.LOWEXIN ---
HPI - Extremity Injury (Lower) General Chief Complaint: Extremity Injury, Lower Stated Complaint: hip pain Time Seen by Provider: 07/24/25 15:05 History of Present Illness HPI Narrative: Patient is a 40-year-old female who presents ER with right hip pain. She has been training for a half marathon that she is supposed to run this weekend. She was running 4 days ago with her daughter on a cross country course when she planted on her right leg and felt sudden onset pain in the hip. She felt a pop sensation and like her hip may have dislocated and then relocated. She has had progressive pain and stiffness since that time and is having no relief with ibuprofen 800 mg or [place]. No numbness or tingling to the groin or leg. Pain radiates along the lateral thigh and across the anterior hip flexors. Related Data Home Medications ?Medication ?Instructions ?Recorded ?Confirmed ?Last Taken ?Type cholecalciferol (vitamin D3) 50 50 mcg PO DAILY 06/08/24 01/01/25 Unknown History mcg (2,000 unit) capsule (Vitamin D3) Allergies Allergy/AdvReac Type Severity Reaction Status Date / Time No Known Allergies Allergy Verified 07/24/25 15:15 Review of Systems Review of Systems: All systems reviewed & are unremarkable except as noted in HPI and below Constitutional: Constitutional: Reports no additional constitutional complaints Cardiovascular: Cardiovascular: Reports no additional cardiovascular complaints Respiratory: Respiratory: Reports no additional respiratory complaints Gastrointestinal: Gastrointestinal: Reports no additional gastrointestinal complaints Musculoskeletal: Musculoskeletal: Reports no additional musculoskeletal complaints [facility] Past Medical History Medical History (Updated 07/24/25 @ 17:06 by Bebeto Arango MD) Jugular venous distension (JVD) L jugular bulb diverticulum Anxiety Surgical History Surgical History History of breast augmentation History of umbilical hernia repair component separation and mesh Family History Family History Mother Hypertension Cerebrovascular accident Heart disease Social History Social History Social History: Smoking status: Never smoker Second hand tobacco smoke exposure: No Alcohol intake: current Drinks per week: 1 Alcohol use details: One beer a month Substance use: never Substance use type: does not use Living arrangements: with family Occupation/Education: occupation Gender identity (if verbalized by the patient): Female Sexual Orientation (if Verbalized by the Patient): Straight or Heterosexual Exam Narrative: GENERAL: Well-appearing, well-nourished, and in no acute distress. HEAD: Normocephalic, atraumatic. ENT: Mucous membranes moist. EXTREMITIES: Focused exam of the right lower extremity reveals discomfort over the lateral hip and mildly anteriorly in the hip flexor region. With passive range of motion patient has exquisite pain with external rotation while her hip and knee are flexed but also when her leg is fully extended and externally rotated. SKIN: Warm, dry, no rash. NEURO: Alert and oriented x3. PSYCH: Normal mood and affect. Course Course Emergency Course: Discussed case with Dr. Liao. There is concerned that patient could have a stress fracture of the femoral neck. The recommendation is for her to be toe-touch weight-bearing while using crutches and to receive an outpatient MRI. I have discussed the treatment plan with the patient who verbalized understanding. She declines additional medications for home. Vital Signs Vital signs: Vital Signs Temperature 98.3 F 07/24/25 15:06 Pulse Rate 86 07/24/25 15:06 Respiratory Rate 18 07/24/25 15:06 Blood Pressure 124/83 07/24/25 15:06 Pulse Oximetry 100 07/24/25 15:06 Oxygen Delivery Room Air 07/24/25 15:06 Temperature 98.3 F 07/24/25 15:06 Pulse Rate 86 07/24/25 15:06 Respiratory Rate 18 07/24/25 15:06 Blood Pressure 124/83 07/24/25 15:06 Pulse Oximetry 100 07/24/25 15:06 Oxygen Delivery Room Air 07/24/25 15:06 MDM - Extremity Injury (Lower) Imaging Data Radiologist's impression: ITS Impressions Hip/Pelvis X-Ray 07/24/25 15:34 Impression: No acute fracture or malalignment. Discharge Plan Discharge Clinical Impression: Hip injury Patient Disposition: Home Condition: Stable Instructions: Crutch Instructions (ED), Hip Fracture (ED) Additional Instructions: You are to be toe-touch weight-bearing with your right leg while using crutches. You will need to get an outpatient MRI to assess her hip for possible femoral neck stress fracture. This will also help evaluate the soft tissue of the leg as well. Contact the orthopedic surgeon below to make arrangements for follow-up in imaging. Return the ER immediately should you have worsening pain, you fall in re-injury your leg, or have additional concerns. Patient Language: Chilean Prescriptions: No Action cholecalciferol (vitamin D3) [Vitamin D3] 50 mcg (2,000 unit) Capsule 50 mcg PO DAILY Follow-up/Referrals: Kel Person MD [Primary Care Provider, Family Practice] Karan Liao MD [Physician, Orthopedics] - 1 Week
== END 2025-07-24 17:29 | disposition home or self-care (01) ==
PROVIDERS: Emergency Provider Emergency Medicine; PCP Family Medicine
DX: S79.911A Unspecified injury of right hip, initial encounter (principal); X50.9XXA Other and unspecified overexertion or strenuous movements or postures, initial encounter; Y93.02 Activity, running
CPT/HCPCS: 73502; 99283